=== PATIENT | male | born 1955 | race Caucasian/White ===

== ENCOUNTER 2023-04-30 16:38 | Outpatient (REF) | payer MEDICARE, SELFPAY ==
[2023-04-30 17:16] LABS: ALT 30 U/L (16-63); AST 21 U/L (15-37); Alkaline Phosphatase 51 U/L (46-116); Anion Gap 7.5 mmol/L (3-11); BUN 25 mg/dL (7-18); Bilirubin, Total 0.4 mg/dL (0.2-1.0); CO2 29.5 mmol/L (21.0-32.0); Calcium 9.2 mg/dL (8.5-10.1); Calculated LDL 104 mg/dL (<100); Chloride 104 mmol/L (98-107); Cholesterol 175 mg/dL (<200); Estimated GFR 83.52 (mL/min/1.73m2); Glucose 132 mg/dL (74-106); HDL Cholesterol 49 mg/dL (40-60); Potassium 4.4 mmol/L (3.5-5.1); Sodium 141 mmol/L (136-145); Total Protein 7.3 g/dL (6.4-8.2); Triglyceride 111 mg/dL (<150)
[2023-04-30 17:19] LABS: Hemoglobin A1C 5.5 % (<5.7)
[2023-05-04 07:41] LABS: PSA, Screening 0.6 ng/mL (<=4.5)
[2023-05-07 13:30] LABS: Testosterone, Free 7.96 ng/dL (3.47-13.0); Testosterone, Total 300 ng/dL (240-950)
== END 2023-04-30 16:39 | disposition home or self-care (01) ==
LOC: NCHCN 16:38
PROVIDERS: Visit Provider Nurse Practitioner Family
DX: Z00.00 Encounter for general adult medical examination without abnormal findings (principal); F52.21 Male erectile disorder; A60.00 Herpesviral infection of urogenital system, unspecified
CPT/HCPCS: 80053; 80061; 84153; 84402; 84403; 83036

== ENCOUNTER → 2023-07-31 14:11 | Outpatient (BNVA) | payer MEDICARE, SELFPAY | PROVIDERS: PCP Nurse Practitioner Family; Referring Provider Nurse Practitioner Family; Visit Provider Surgery | DX: L72.3 Sebaceous cyst (principal) | CPT/HCPCS: 11403; 12031; 99204 ==

== ENCOUNTER → 2023-08-13 09:50 | Outpatient (BNVA) | payer MEDICARE, SELFPAY | PROVIDERS: PCP Nurse Practitioner Family; Referring Provider Nurse Practitioner Family; Visit Provider Surgery | DX: Z48.817 Encounter for surgical aftercare following surgery on the skin and subcutaneous tissue (principal) ==